=== PATIENT | male | born 2000 | race Caucasian/White ===

== ENCOUNTER 2024-08-17 11:05 | Emergency (ER) | payer SELFPAY ==
[~2024-08-17] VITALS: Ht 180.3 cm; Wt 83.9 kg
[2024-08-17 11:40] VITALS: PULSE 89; RESP 14; TEMP 98.8; O2SAT 99
[2024-08-17] MEDS: TETANUS/DIPHTHERIA TOX ADULT 0.5 ML SYR IM ONE (12:44)
[2024-08-17] MEDS ORDERED: METHOCARBAMOL750 MG PO (13:56)
[2024-08-17] MEDS ORDERED: CEPHALEXIN500 MG PO (13:56)
== END 2024-08-17 14:33 | disposition home or self-care (01) ==
LOC: ER 11:17
DX: S01.112A Laceration without foreign body of left eyelid and periocular area, initial encounter (principal); S92.515A Nondisplaced fracture of proximal phalanx of left lesser toe(s), initial encounter for closed fracture; S50.812A Abrasion of left forearm, initial encounter; S80.212A Abrasion, left knee, initial encounter; S80.211A Abrasion, right knee, initial encounter; V86.59XA Driver of other special all-terrain or other off-road motor vehicle injured in nontraffic accident, initial encounter; Y92.89 Other specified places as the place of occurrence of the external cause
CPT/HCPCS: 70450; 70486; 72125; 90714; 99283